=== PATIENT | female | born 1945 | race Caucasian/White ===

== ENCOUNTER 2025-01-06 08:47 | Day surgery (SDC) | payer MEDICARE, BC ==
[2025-01-06] MEDS: Lactated Ringers 1,000 ML IV SCH (09:16)
== END 2025-01-06 10:50 ==
LOC: CC.SDS 08:47
PROVIDERS: ATTEND Family Medicine
DX: Z12.11 Encounter for screening for malignant neoplasm of colon (principal); R19.5 Other fecal abnormalities; K57.30 Diverticulosis of large intestine without perforation or abscess without bleeding; I10 Essential (primary) hypertension; E78.00 Pure hypercholesterolemia, unspecified; F41.9 Anxiety disorder, unspecified; E03.9 Hypothyroidism, unspecified; Z79.890 Hormone replacement therapy; Z79.899 Other long term (current) drug therapy
CPT/HCPCS: J7120